=== PATIENT | male | born 1990 | race Caucasian/White ===

== ENCOUNTER 2018-01-06 12:25 | Emergency (ER) | payer OTHER ==
[~2018-01-06] VITALS: Ht 193 cm; Wt 102.0 kg
[2018-01-06 12:27] VITALS: TEMP 36.3; Ht 193 cm; Wt 102.0 kg
[2018-01-06] MEDS ORDERED: IBUP-1105 PO (12:45)
[2018-01-06] MEDS ORDERED: CYCLOBENZAPRINE HCL 10 MG TAB PO STA (13:28)
[2018-01-06] MEDS ORDERED: CYCL10TA6 PO (13:35)
[2018-01-06] MEDS ORDERED: HYDR-5688 PO (13:35)
[2018-01-06 14:21] VITALS: BP 119/69; PULSE 62; O2SAT 97
--- NOTE | 2018-01-06 15:54 | EMERGENCY ROOM VISIT NOTE ---
ED Visit Note First contact with patient: 13:11 CHIEF COMPLAINT: Right low back pain HISTORY OF PRESENT ILLNESS: This 27-year-old white male patient complains of pain in the low back which began after lifting his child last night. The pain was sudden and focal in onset, is now constant and worse with movement. Denies any bowel or bladder difficulties. There has been no leg numbness or weakness. No recent direct trauma. No vomiting or abdominal pain. No prior history of similar. Pain is 7/10. No treatment yet. His accompanies him today. REVIEW OF SYSTEM: HEENT: No dizziness, visual problems, hearing loss, or tinnitus. There is no difficulty swallowing and no oral lesions are present. LYMPH: No adenopathy. PULMONARY: No cough, shortness of breath, sputum production or hemoptysis. CARDIOVASCULAR: No chest pain, palpitations, shortness of breath or peripheral edema. GASTROINTESTINAL: No diarrhea, constipation, nausea, vomiting, or abdominal pain. GENITOURINARY: No dysuria, frequency, urgency or nocturia. NEUROLOGIC: No weakness, muscle tenderness, epilepsy or history of neurological problems. MUSCULOSKELETAL: No history of joint tenderness/swelling. No history of arthritis or arthralgias. SKIN: No rashes or lesions. ENDOCRINE: No history of diabetes, thyroid disorders, or abnormal hair growth. PMH: Supplemental sheet was reviewed and signed. Previous surgeries: None Medical history: Benign Current medications: None Allergies: Erythromycin, sulfisoxazole SOCIAL HISTORY: Patient lives at home with his family. No tobacco use, occasional EtOH use. Employed at [employer]. PHYSICAL EXAM: Vital Signs: Afebrile. Reviewed and filed in patient's chart. General: Well-developed, well-nourished, young white male, in obvious discomfort. No acute distress. He is laying on the bed. Alert and oriented. Skin:Warm and dry with good turgor. No rashes or lesions. No ecchymosis or erythema. The patient is not diaphoretic. No abrasions. NECK: Supple, non- tender. Musculoskeletal: There is tenderness in the paraspinous muscles in the right lumbar area. No tenderness over the spinous processes or discs spaces of the lumbar vertebrae. Range of motion of the back is limited secondary to pain , especially with rotation. Lower extremities have normal strength including dorsi-flexion and plantar flexion of the feet. Negative bilateral straight leg raises. No pain with palpation over the SI joints or sacrum. There is a muscle spasm palpable within the right erector muscle. Neurologic: normal and symmetrical knee and ankle reflexes. Gross sensation is intact across the lower extremities by soft touch. Peripheral pulses are 2+. EMERGENCY DEPARTMENT COURSE: Patient was given Flexeril 10 mg p.o. DIAGNOSIS: Right lumbar back strain DISCHARGE INSTRUCTIONS AND TREATMENT: Patient was educated regarding today's findings. Conservative care measures were discussed. Gentle stretching daily. Ice to the back intermittently over the next 3 days, and then use moist heat. Avoid any heavy lifting x5 days. See your own doctor or an orthopedist in 4 - 5 days if you are not improving. [place] 5 mg every 6 hours if needed for the pain. Driving precautions were given. He may use Tylenol and Motrin every 6 hours as needed for mild discomfort. He was also given a prescription for Flexeril 10 mg to be used every 8 hours as needed for pain and spasm. Driving precautions were also given. First dose was given in the ED. His is driving home. Sleep with a pillow under his knees or between his knees. Note was provided to be on modified duty for the next 3 days with maximum lifting of 5 pounds. Current/Historical Medications Scheduled Ibuprofen (Ibuprofen), 4 TABS PO UD Scheduled PRN Cyclobenzaprine Hcl (Flexeril), 1 TAB PO TID PRN for Pain Hydrocodone/Acetaminophen 5MG/325MG ([place] 5MG/325MG), 1-2 TABLET PO Q6H PRN for Pain Allergies Coded Allergies: Erythromycin (Unverified Adverse Reaction, Intermediate, UNKNOWN, 01/06/18) Sulfisoxazole (Unverified Adverse Reaction, Intermediate, UNKNOWN, 01/06/18) Vital Signs Date Time Temp Pulse Resp B/P (MAP) Pulse Ox O2 Delivery O2 Flow Rate FiO2 01/06/18 14:21 62 18 119/69 97 01/06/18 12:27 36.3 71 20 148/89 97 Medications Administered Medications (Trade) Dose Ordered Sig/Zach Route Start Time Stop Time Status Last Admin Dose Admin Cyclobenzaprine HCl (Flexeril Tab) 10 mg NOW STAT PO 01/06/18 13:28 01/06/18 13:29 DC 01/06/18 14:19 10 MG Departure Information Impression Primary Impression: Strain of lumbar region Dispostion Home / Self-Care Prescriptions Hydrocodone/Acetaminophen 5MG/325MG ([place] 5MG/325MG) Tab 1-2 TABLET PO Q6H Y for Pain, #12 TAB For Initial Treatment Prov: Emil Watts,P.A. 01/06/18 Cyclobenzaprine Hcl (FLEXERIL) 10 Mg Tab 1 TAB PO TID Y for Pain for 10 Days, #12 TAB Prov: Emil Watts,P.A. 01/06/18 Forms HOME CARE DOCUMENTATION FORM, Days off work: 3 SPECIAL NARCOTICS INSTRUCTIONS, MOTRIN USE, TYLENOL USE, Work Instructions, Additional Instructions: Sedentary duty at work 3 days-max lift 5 pounds IMPORTANT VISIT INFORMATION Patient Instructions My [facility] Additional Instructions Gentle stretching daily Tylenol and Motrin every 6 hours as needed for mild discomfort Ice intermittently to the low back 3 days, then use moist heat Sleep with a pillow between her knees or under your knees Flexeril 1 tablet every 8 hours as needed for pain/spasm-no driving [place] 5mg 1-2 tablets every 6 hours as needed for pain-no driving Follow up with your PCP to discuss a physical therapy referral if symptoms persist No heavy lifting over the next 3-5 days Work Instructions Additional Work Instructions: Sedentary duty at work 3 days-max lift 5 pounds
== END 2018-01-06 14:23 | disposition home or self-care (01) ==
LOC: C.EDB 12:26 → C.EDD 14:23
DX: S39.012A Strain of muscle, fascia and tendon of lower back, initial encounter (principal); M54.5 Low back pain; X50.9XXA Other and unspecified overexertion or strenuous movements or postures, initial encounter

== ENCOUNTER 2018-01-12 14:54 | Emergency (ER) | payer OTHER ==
[~2018-01-12] VITALS: Ht 193 cm; Wt 104.2 kg
[~2018-01-12 14:54] MED LIST: CYCL10TA6 PO; HYDR-5688 PO; IBUP-1105 PO
[2018-01-12 15:04] VITALS: TEMP 37; Ht 193 cm; Wt 104.2 kg
[2018-01-12] MEDS ORDERED: MoRPHine SULFATE 10 MG/ML CARP/VIAL IM STA ×2 (15:17→16:24)
[2018-01-12] MEDS ORDERED: PRD/1 PO (15:33)
--- NOTE | 2018-01-12 17:33 | DIAGNOSTIC IMAGING REPORT ---
LUMBAR SPINE 5 VIEWS HISTORY: lower back pain COMPARISON: None. FINDINGS: There is no fracture. No subluxation. Disc spaces are preserved. IMPRESSION: No fracture or subluxation within the lumbar spine. Electronically signed by: Anderson Lemus M.D. 01/12/2018 5:31 PM Dictated Date/Time: 01/12/2018 5:30 PM
[2018-01-12] MEDS ORDERED: OXYC1TAB3 PO (17:39)
[2018-01-12 17:42] VITALS: BP 130/73; PULSE 80; O2SAT 97
--- NOTE | 2018-01-12 21:01 | EMERGENCY ROOM VISIT NOTE ---
History Report prepared by Kyra: Jessica Helton Under the Supervision of: Dr. Eric Coffman D.O. First contact with patient: 15:08 Chief Complaint: BACK PAIN Stated Complaint: BACK PAIN History of Present Illness The patient is a 27 year old male who presents to the Emergency Room with complaints of worsening back pain for the past 1 week. He rates his discomfort as an 8/10 in severity. He reports he picked up his oldest daughter about 1 week ago and since then, has experienced lower back pain. He came to the ED for treatment the day after the pain started, and saw his PCP this past week. He has tried heat, ice, muscle relaxers, steroids and pain medicine with no improvement. The patient denies any weakness or numbness in his groin. He reports he does occasionally experience bilateral finger numbness. No limb weakness or numbness in the legs. Able to move his bowels and urinate without difficulty. 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 Pt denies headache, change in vision, fevers, chest pain, shortness of breath, nausea, vomiting, diarrhea, pain with urination , and melena. 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 A total of 10 systems reviewed and were otherwise negative. Past Medical & Surgical Medical Problems: (1) No significant past medical history Social History Smoking Status: Never Smoker Alcohol Use: occasionally Drug Use: none Marital Status: Housing Status: lives with family Occupation Status: employed Current/Historical Medications Scheduled Ibuprofen (Ibuprofen), 4 TABS PO UD Prednisone (Prednisone), Unknown Dose PO DIRECTED Scheduled PRN Cyclobenzaprine Hcl (Flexeril), 1 TAB PO TID PRN for Pain Oxycodone Immediate Rel Tab (Roxicodone Ir), 5 MG PO Q6H PRN for Pain Allergies Coded Allergies: Erythromycin (Unverified Adverse Reaction, Intermediate, UNKNOWN, 01/06/18) Sulfisoxazole (Unverified Adverse Reaction, Intermediate, UNKNOWN, 01/06/18) Physical Exam Vital Signs Date Time Temp Pulse Resp B/P (MAP) Pulse Ox O2 Delivery O2 Flow Rate FiO2 01/12/18 17:42 80 18 130/73 97 Room Air 01/12/18 16:15 74 20 130/76 99 Room Air 01/12/18 15:04 37.0 89 20 125/67 98 Room Air Physical Exam GENERAL: Laying in bed, alert, in moderate distress, holding lower back, well nourished, non-toxic EYE EXAM: normal conjunctiva. OROPHARYNX: no exudate, no erythema, lips, buccal mucosa, and tongue normal and mucous membranes are moist NECK: supple, no nuchal rigidity, no adenopathy, non-tender LUNGS: Clear to auscultation. Normal chest wall mechanics HEART: no murmurs, S1 normal and S2 normal ABDOMEN: abdomen soft, non-tender, normo-active bowel sounds, no masses, no rebound or guarding. BACK: Back is symmetrical on inspection and there is no deformity, minimal tenderness in lower lumbar paraspinal region on the right. SKIN: no rashes and no bruising UPPER EXTREMITIES: upper extremities are grossly normal. LOWER EXTREMITIES: No pitting edema. Flexion, extension of the hip, knees, ankles and EHL are 5/5 bilaterally, gross sensation intact. DP's and PT's are 2/ 4. Patellar and Achilles reflexes 2/4. NEURO EXAM: Normal sensorium, cranial nerves II-XII grossly intact, normal speech, no gross weakness of arms, no gross weakness of legs. Medical Decision & Procedures ER Provider Diagnostic Interpretation: Radiology results as stated below per my review and the radiologist's interpretation: LUMBAR SPINE 5 VIEWS HISTORY: lower back pain COMPARISON: None. FINDINGS: There is no fracture. No subluxation. Disc spaces are preserved. IMPRESSION: No fracture or subluxation within the lumbar spine. Electronically signed by: Anderson Lemus M.D. 01/12/2018 5:31 PM Medications Administered Medications (Trade) Dose Ordered Sig/Zach Route Start Time Stop Time Status Last Admin Dose Admin Morphine Sulfate (MoRPHine SULFATE INJ) 8 mg NOW STAT IM 01/12/18 15:17 01/12/18 15:18 DC 01/12/18 15:25 8 MG Morphine Sulfate (MoRPHine SULFATE INJ) 8 mg NOW STAT IM 01/12/18 16:24 01/12/18 16:25 DC 01/12/18 16:56 8 MG ED Course ED COURSE: Vital signs were reviewed and showed normal vital signs. The patients medical record was reviewed The above diagnostic studies were performed and reviewed. ED treatments and interventions as stated above. 1511: The patient was evaluated in room B8. A complete history and physical examination was performed. 1517: Morphine Sulfate 8 mg IM. 1624: Morphine Sulfate 8 mg IM. 1800: Upon reevaluation, the patient is feeling better and ready to go home. I discussed my findings with the patient and he understands and agrees with the treatment plan. Based on the patients age, coexisting illnesses, exam and lab findings the decision to treat as an outpatient was made. The patient remained stable while under my care. The patient appeared well at the time of discharge. Medical Decision Differential diagnoses includes but is not limited to lumbar radiculopathy, kidney stone, muscle strain, facture, cauda equina, mass, and disc herniation. Patient is a 27-year-old male that presents to ER for lower back pain which started a week ago. It resolves/significantly improves with rest and is significantly worsened with movement. Minimal reproducible right paraspinal tenderness. X-rays of lumbar spine were unremarkable. He has taken Flexeril and steroids with minimal improvement. Neurologic exam is completely intact. He was given OxyIR. He was discharged to follow-up with PCP as an outpatient. I do believe that this likely muscle skeletal in nature. No signs of cauda equina. Discussed with Pt concerning signs and symptoms to watch out for. Pt was instructed to follow up with their PCP and discussed with the patient their option to return to the ED at anytime for persistent or worsening symptoms. The appropriate anticipatory guidance and out-patient management, including indications for return to the emergency department, were explained at length to the patient and understood. [place] Drug Monitoring Program Search Results: patient reviewed within database, no issues identified Medication Reconcilliation Current Medication List: was personally reviewed by me Blood Pressure Screening Patient's blood pressure: Normal blood pressure Blood pressure disposition: Did not require urgent referral Impression Primary Impression: Strain of lumbar region Scribe Attestation The scribe's documentation has been prepared under my direction and personally reviewed by me in its entirety. I confirm that the note above accurately reflects all work, treatment, procedures, and medical decision making performed by me. Departure Information Dispostion Home / Self-Care Prescriptions Oxycodone Immediate Rel Tab (ROXICODONE IR) 5 Mg Tab 5 MG PO Q6H Y for Pain, #10 TAB Prov: Eric Coffman Magy, DO 01/12/18 Referrals No Doctor, Assigned (PCP) Patient Instructions Lumbar Pain Causes, My [facility] Additional Instructions Please follow up with your primary care doctor or if you are a student, [facility] with in the next 24 hours. Any worsening of your symptoms, please return to the ED immediately. This includes any fevers greater than 100.4, worsening pain, chest pain, shortness breath, persistent nausea, vomiting, unable to eat or drink, weakness or numbness in her groin, numbness in her legs, or any other concerning signs or symptoms from your standpoint. You were given medications during this visit that will inhibit your ability to drive, operate machinery and work. Please do NOT drive, operate machinery, drink alcohol or work for the next 12hrs. Problem Qualifiers Primary Impression: Strain of lumbar region Encounter type: initial encounter Qualified Codes: S39.012A - Strain of muscle, fascia and tendon of lower back, initial encounter
== END 2018-01-12 18:09 | disposition home or self-care (01) ==
LOC: C.EDB 14:54
DX: S39.012A Strain of muscle, fascia and tendon of lower back, initial encounter (principal); X50.0XXA Overexertion from strenuous movement or load, initial encounter